=== PATIENT | male | born 1955 | race American Indian/Alaskan Native ===

== ENCOUNTER 2017-03-13 08:49 | Emergency (ER) | payer OTHER ==
[2017-03-13 08:51] VITALS: BMI 28.3
[2017-03-13] MEDS ORDERED: Sodium Chloride 0.9% 1,000 ML IV STA (09:26)
[2017-03-13 10:28] LABS: BASO % 0.6 % (0.0-2.0); EOS # 0.1 K/uL (0.0-0.7); EOS % 2.9 % (0.0-4.0); HEMOGLOBIN 12.6 g/dL (12.0-18.0); LYMPH # 1.3 K/uL (1.0-4.3); LYMPH % 34.3 % (20.0-40.0); MEAN CELL VOLUME 82.9 fl (80.0-94.0); MEAN CORPUSCULAR HEMOGLOBIN 26.7 pg (27.0-31.0); MEAN CORPUSCULAR HGB CONC 32.1 g/dL (33.0-37.0); MEAN PLATELET VOLUME 9.1 fl (7.2-11.7); MONO # 0.3 K/uL (0.0-0.8); MONO % 7.7 % (0.0-10.0); NEUT # 2.1 K/uL (1.8-7.0); NEUT % 54.5 % (50.0-75.0); NRBC % 0.1 % (0.0-0.0); RBC 4.71 Mil/uL (4.40-5.90); RED CELL DISTRIBUTION WIDTH 14.8 % (11.5-14.5); WHITE BLOOD COUNT 3.9 K/uL (4.8-10.8)
[2017-03-13 10:37] LABS: SQUAMOUS EPITHIAL 1 /hpf (0-5); URINE BILIRUBIN NEGATIVE (NEGATIVE); URINE BLOOD NEGATIVE (NEGATIVE); URINE CLARITY CLEAR (Clear); URINE COLOR YELLOW (YELLOW); URINE GLUCOSE (UA) NEG (Normal); URINE LEUKOCYTE ESTERASE NEG Leu/uL (Negative); URINE NITRATE NEGATIVE (NEGATIVE); URINE PROTEIN NEGATIVE (NEGATIVE); URINE UROBILINOGEN 0.2-1.0 mg/dL (0.2-1.0)
[2017-03-13 10:48] LABS: ALBUMIN 3.9 g/dL (3.5-5.0); ALT/SGPT 126 U/L (21-72); AST/SGOT 95 U/L (17-59); BLOOD UREA NITROGEN 13 mg/dl (9-20); CALCIUM 9.4 mg/dL (8.4-10.2); GFR AFRICAN-AMERICAN > 60; GFR NON-AFRICAN AMERICAN > 60; LIPASE 75 U/L (23-300)
[2017-03-13] MEDS ORDERED: Sodium Chloride 0.9% 50 ML IV ONE (10:59)
[2017-03-13] MEDS ORDERED: Iohexol 300 100 ML IJ ONE (10:59)
--- NOTE | 2017-03-13 11:54 | CT ---
PROCEDURE: CT Abdomen and Pelvis with contrast HISTORY: LLQ pain [id number] COMPARISON: Abdomen and pelvis CT without contrast 10/16/2011. TECHNIQUE: Contrast dose: Omnipaque 300, 95 cc Radiation dose: Total exam DLP = 717.12 mGy-cm. This CT exam was performed using one or more of the following dose reduction techniques: Automated exposure control, adjustment of the mA and/or kV according to patient size, and/or use of iterative reconstruction technique. FINDINGS: LOWER THORAX: Mild cardiomegaly again noted. No pleural or pericardial effusion identified. LIVER: Hepatic steatosis is appreciate without liver enlargement or focal mass evident. No prominent intrahepatic biliary dilatation demonstrated. GALLBLADDER AND BILE DUCTS: Unremarkable. PANCREAS: Unremarkable. No gross lesion or ductal dilatation. SPLEEN: Unremarkable. ADRENALS: Unremarkable. No mass. KIDNEYS AND URETERS: Unremarkable. No hydronephrosis. No solid mass. VASCULATURE: Unremarkable. No aortic aneurysm. BOWEL: Prior incarcerated small-bowel loop within a ventral hernia is not identified. No bowel obstruction is appreciable. Tiny umbilical hernia remains, containing only mesenteric fat. A mild amount of retained fecal material scattered throughout the large bowel. No definite colonic diverticular changes. APPENDIX: Normal appendix. PERITONEUM: No measure edema or prominent lymphadenopathy. No free fluid. No free air. LYMPH NODES: Unremarkable. No enlarged lymph nodes. BLADDER: Unremarkable. REPRODUCTIVE: Unremarkable. BONES: No acute fracture. OTHER FINDINGS: None. IMPRESSION: Nonacute abdomen pelvis CT examination as discussed above. Resolution of prior incarcerated ventral abdominal hernia. Hepatic steatosis.
--- NOTE | 2017-03-13 12:03 | ED PDOC ---
HPI: Abdomen Time Seen by Provider: 03/13/17 09:07 Chief Complaint (Nursing): Abdominal Pain Chief Complaint (Provider): abdominal pain History Per: Patient, Family History/Exam Limitations: no limitations Onset/Duration Of Symptoms: Other (approx 1 month worse last few days) Current Symptoms Are (Timing): Intermittent Episodes Location Of Pain/Discomfort: LLQ Quality Of Discomfort: Pressure Associated Symptoms: denies: Chills, Nausea, Vomiting, Diarrhea, Loss Of Appetite, Back Pain Exacerbating Factors: Movement Alleviating Factors: Rest Additional Complaint(s): 61yo male presents c/o LLQ pain 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 States pain is presure like and radiates to left testicle. Denies vomiting /diarrhea/ fever or weight loss. States notices small blood in stool intermittently had colonoscopy 2x last a few years ago, possibly due again. Denies pain to back or radiating to leg. Told he has possible early parkinsons via neurologist. Past Medical History Reviewed: Historical Data, Nursing Documentation, Vital Signs Vital Signs: Last Vital Signs Temp 98.6 F 03/13/17 08:51 Pulse 53 L 03/13/17 08:51 Resp 17 03/13/17 08:51 BP 184/87 H 03/13/17 08:51 Pulse Ox 99 03/13/17 12:05 - Medical History PMH: Parkinson's Disease - Surgical History Surgical History: Hernia Repair - Family History Family History: States: Unknown Family Hx - Living Arrangements Living Arrangements: With Family - Social History Current smoker - smoking cessation education provided: No Alcohol: Occasional - Home Medications Home Medications: Ambulatory Orders Medication Instructions Recorded Ibuprofen [Motrin Tab] 600 mg PO Q6 PRN #15 tab 03/13/17 - Allergies Allergies/Adverse Reactions: Allergies Allergy/AdvReac Type Severity Reaction Status Date / Time Penicillins Allergy RASH Verified 03/13/17 09:08 Review of Systems Constitutional: Negative for: Fever, Chills ENT: Negative for: Nose Discharge Cardiovascular: Negative for: Chest Pain, Palpitations Respiratory: Negative for: Cough, Shortness of Breath Gastrointestinal: Positive for: Abdominal Pain. Negative for: Nausea, Vomiting , Diarrhea, Melena, Hematochezia, Hematemesis, Rectal Pain Genitourinary Male: Negative for: Dysuria, Frequency Musculoskeletal: Negative for: Neck Pain, Shoulder Pain Skin: Negative for: Rash Neurological: Negative for: Weakness, Numbness, Headache, Dizziness Psych: Negative for: Anxiety Physical Exam - Reviewed Nursing Documentation Reviewed: Yes Vital Signs Reviewed: Yes - Physical Exam Appears: Positive for: Well, Non-toxic, No Acute Distress Head Exam: Positive for: ATRAUMATIC, NORMAL INSPECTION, NORMOCEPHALIC Skin: Positive for: Normal Color, Warm, DRY Eye Exam: Positive for: EOMI, Normal appearance, PERRL ENT: Positive for: Normal ENT Inspection Neck: Positive for: Normal, Painless ROM Cardiovascular/Chest: Positive for: Regular Rate, Rhythm Respiratory: Positive for: CNT, Normal Breath Sounds Gastrointestinal/Abdominal: Positive for: Bowel Sounds, Soft, Tenderness (mild LLQ), Other (umbilical scar healed). Negative for: Guarding Male Genital Exam: Positive for: normal genitalia, other (L testicular atrophy?) Back: Positive for: Normal Inspection Extremity: Positive for: Normal ROM Neurologic/Psych: Positive for: Alert, Oriented. Negative for: Motor/Sensory Deficits - Laboratory Results Result Diagrams: 03/13/17 10:16 03/13/17 10:16 - ECG O2 Sat by Pulse Oximetry: 99 Medical Decision Making Medical Decision Making: workup initiated for LLQ pain r/o subacute diverticulitis, mass, psoas abscess or other abd pathology labs reviewed and unremarkable CT abd pelv performed Accession No. : [id number] Patient Name / ID : JAGDEEP FLETCHER / [id number] Exam Date : 03/13/2017 09:53:08 ( Approved ) Study Comment : Sex / Age : M / 61Y Creator : Figueroa Alexandra MD Dictator : Figueroa Alexandra MD Refractory Worker : Mma Fighter : Figueroa Alexandra MD Approver2 : Report Date : 03/13/2017 11:53:15 My Comment : PROCEDURE: CT Abdomen and Pelvis with contrast HISTORY: LLQ pain [id number] COMPARISON: Abdomen and pelvis CT without contrast 10/16/2011. TECHNIQUE: Contrast dose: Omnipaque 300, 95 cc Radiation dose: Total exam DLP = 717.12 mGy-cm. This CT exam was performed using one or more of the following dose reduction techniques: Automated exposure control, adjustment of the mA and/or kV according to patient size, and/or use of iterative reconstruction technique. FINDINGS: LOWER THORAX: Mild cardiomegaly again noted. No pleural or pericardial effusion identified. LIVER: Hepatic steatosis is appreciate without liver enlargement or focal mass evident. No prominent intrahepatic biliary dilatation demonstrated. GALLBLADDER AND BILE DUCTS: Unremarkable. PANCREAS: Unremarkable. No gross lesion or ductal dilatation. SPLEEN: Unremarkable. ADRENALS: Unremarkable. No mass. KIDNEYS AND URETERS: Unremarkable. No hydronephrosis. No solid mass. VASCULATURE: Unremarkable. No aortic aneurysm. BOWEL: Prior incarcerated small-bowel loop within a ventral hernia is not identified. No bowel obstruction is appreciable. Tiny umbilical hernia remains, containing only mesenteric fat. A mild amount of retained fecal material scattered throughout the large bowel. No definite colonic diverticular changes. APPENDIX: Normal appendix. PERITONEUM: No measure edema or prominent lymphadenopathy. No free fluid. No free air. LYMPH NODES: Unremarkable. No enlarged lymph nodes. BLADDER: Unremarkable. REPRODUCTIVE: Unremarkable. BONES: No acute fracture. OTHER FINDINGS: None. IMPRESSION: Nonacute abdomen pelvis CT examination as discussed above. Resolution of prior incarcerated ventral abdominal hernia. Hepatic steatosis. Pt requires further workup as outpt. States due for another colonoscopy hence encouraged and reminded of importance of this test if indicated via his GI specialist Rx motrin for pain, increase fluid intake, return ER for any worse or new symptoms Refer to urology for L testicular pain ?atrophy Disposition - Clinical Impression Clinical Impression: Abdominal pain, Testicular pain Counseled Patient/Family Regarding: Studies Performed, Diagnosis, Need For Followup, Rx Given - Disposition Referrals: Sukumar Ojeda MD [Staff Provider] - Patrick Reddy Jr., MD [Staff Provider] - Disposition: Routine/Home Disposition Time: 12:07 Condition: STABLE Additional Instructions: See urologist and your primary doctor and claims support specialist for further testing. Prescriptions: Ibuprofen [Motrin Tab] 600 mg PO Q6 PRN #15 tab PRN Reason: Pain, Moderate (4-7) Instructions: Abdominal Pain (ED), Testicle Pain (ED), Rectal Bleeding (ED) Forms: [facility] ([place])
[2017-03-13 12:48] VITALS: BP 171/76; PULSE 58; RESP 14; TEMP 97.6; O2SAT 97
== END 2017-03-13 13:13 | disposition home or self-care (01) ==
LOC: H.ER 08:49
DX: R10.32 Left lower quadrant pain (principal); N50.812 Left testicular pain; G20 Parkinson's disease; K76.0 Fatty (change of) liver, not elsewhere classified; Z88.0 Allergy status to penicillin
CPT/HCPCS: 74177; 80053; 81003; 83690; 85025; 96361; 96374; 99283; J1885; J7040; Q9967